=== PATIENT | female | born 1960 | race Caucasian/White ===

== ENCOUNTER 2019-10-22 00:19 | Inpatient (IN) | payer BC ==
[~2019-10-22] VITALS: Ht 172.7 cm; Wt 96.3 kg
[2019-10-22] MEDS ORDERED: ALBUTEROL SULF 2.5 MG/0.5ML(0.5%) NEB SOLN NEB ONE (00:45)
[2019-10-22] MEDS ORDERED: methylPREDNISolone SOD SUCC 125 MG/2 ML VL IV ONE (00:45)
[2019-10-22] MEDS ORDERED: IPRATROPIUM BROM 0.5 MG/2.5ML INH SOL NEB ONE (00:45)
[2019-10-22 01:09] LABS: Basophils # (auto) 0 10 ^3/uL (0-0.2); Basophils % (auto) 0.9 % (0.0-2.0); Eosinophils # (auto) 0.1 10 ^3/uL (0-0.8); Eosinophils % (auto) 2.2 % (0.0-7.0); Hematocrit 44.8 % (36.0-46.0); Hemoglobin 15.2 g/dL (12.2-16.2); Lymphocytes # (auto) 1.7 10 ^3/uL (0.4-5.4); Lymphocytes % (auto) 35.7 % (10.0-50.0); Mean Corpuscular Hemoglobin 31.7 pg (28.0-32.0); Mean Corpuscular Volume 93.2 fL (80.0-100.0); Monocytes # (auto) 0.4 10 ^3/uL (0-1.3); Monocytes % (auto) 9.3 % (0.0-12.0); Neutrophils # (auto) 2.4 10 ^3/uL (1.6-8.6); Neutrophils % (auto) 51.9 % (37.0-80.0); Nucleated Red Blood Cells % 0.4 %; Platelet Count (auto) 257 10^3/uL (140-450); Red Cell Distribution Width 13.7 % (11.8-14.3); White Blood Cell 4.7 10^3/uL (4.4-10.8)
[2019-10-22 01:26] LABS: Partial Thromboplastin Time 28.6 sec (23.64-32.05)
[2019-10-22 01:27] LABS: Albumin 3.4 g/dL (3.4-5.0); Anion Gap 6 (5-15); Calcium 8.7 mg/dL (8.5-10.1); Carbon Dioxide 25 mmol/L (21-32); Chloride 110 mmol/L (98-107); Glucose 103 mg/dL (74-106); Potassium 3.6 mmol/L (3.5-5.1); Sodium 141 mmol/L (136-145)
[2019-10-22 01:36] LABS: Alanine Aminotransferase 28 U/L (13-56); Alkaline Phosphatase 70 U/L (45-117); Aspartate Aminotransferase 14 U/L (15-37); BUN/Creatinine Ratio 22.4; Bilirubin, Total 0.4 mg/dL (0.2-1.0); Blood Urea Nitrogen 19 mg/dL (7-18); GFR African American 89 mL/min; GFR Non-African American 73 mL/min
[2019-10-22] MEDS ORDERED: DOCUSATE SOD 100 MG CAP PO PRN (03:00)
[2019-10-22] MEDS ORDERED: ONDANSETRON HCL 4 MG/2 ML VIAL IV PRN (03:00)
[2019-10-22] MEDS ORDERED: ACETAMINOPHEN 325 MG TAB PO PRN (03:00)
[2019-10-22] MEDS ORDERED: MORPHINE SULF INJ 2 MG/ML SYRINGE 1ML IV PRN (03:00)
[2019-10-22] MEDS ORDERED: ALBUTEROL SULF 2.5 MG/0.5ML(0.5%) NEB SOLN NEB PRN (03:00)
[2019-10-22] MEDS ORDERED: ACETAMINOPHEN 500 MG TAB PO PRN (03:00)
[2019-10-22] MEDS ORDERED: HYDROcodone-ACET 5/325MG TAB PO PRN (03:00)
[2019-10-22] MEDS ORDERED: IPRATROPIUM BROM 0.5 MG/2.5ML INH SOL NEB PRN (03:00)
[2019-10-22 03:24] VITALS: BP 154/73
[2019-10-22] MEDS: SODIUM CHLORIDE 0.9% 1,000 ML IV SCH ×2 (05:20→14:34)
[2019-10-22] MEDS ORDERED: ALBUTEROL SULF HFA 90MCG INH 200DOSE IN SCH (06:00)
--- NOTE | 2019-10-22 07:55 | NUR ---
Opening Shift Note Assumed care of patient, awake and alert. No S/S of distress/SOB or pain. Instructed on POC and to call for assist PRN, will continue to monitor for changes Q1hr and PRN.
--- NOTE | 2019-10-22 08:39 | NUR ---
MS admit from ER RODRI SHELL admitted to tele/MS after SBAR received. Patient oriented to MANUELA GONZALEZ RN primary RN, unit, room, bed, and unit policies regarding patient care and visiting hours. Patient weighed by bedscale and encouraged to call if they need something. All questions and concerns addressed, patient verbalized understanding.
[2019-10-22 08:40] LABS: Basophils # (auto) 0 10 ^3/uL (0-0.2); Basophils % (auto) 0.4 % (0.0-2.0); Eosinophils # (auto) 0 10 ^3/uL (0-0.8); Hematocrit 46.4 % (36.0-46.0); Hemoglobin 15.5 g/dL (12.2-16.2); Lymphocytes # (auto) 0.6 10 ^3/uL (0.4-5.4); Lymphocytes % (auto) 8.8 % (10.0-50.0); Mean Corpuscular Hgb Conc. 33.4 g/dL (32.0-36.0); Monocytes # (auto) 0.1 10 ^3/uL (0-1.3); Monocytes % (auto) 1.5 % (0.0-12.0); Neutrophils # (auto) 5.9 10 ^3/uL (1.6-8.6); Neutrophils % (auto) 89.3 % (37.0-80.0); Platelet Count (auto) 236 10^3/uL (140-450); Red Blood Cells 4.99 10^6/uL (4.0-5.20); Red Cell Distribution Width 13.4 % (11.8-14.3); White Blood Cell 6.6 10^3/uL (4.4-10.8)
[2019-10-22 09:08] LABS: Chloride 112 mmol/L (98-107); Potassium 3.4 mmol/L (3.5-5.1)
[2019-10-22 09:19] VITALS: BP 132/73
[2019-10-22 09:19] LABS: BUN/Creatinine Ratio 19.5; Blood Urea Nitrogen 15 mg/dL (7-18); Calcium 8.7 mg/dL (8.5-10.1); Carbon Dioxide 24 mmol/L (21-32); Cholesterol 237 mg/dL (< 200); GFR African American 99 mL/min; GFR Non-African American 82 mL/min; Glucose 148 mg/dL (74-106); HDL Cholesterol 50 mg/dL (40-59); LDL Cholesterol 165 mg/dL (< 100); Magnesium 2.5 mg/dL (1.6-2.6); Triglycerides 105 mg/dL (< 150)
[2019-10-22] MEDS: DOXYCYCLINE 100 MG TAB/CAP PO SCH ×2 (09:57→10:00)
[2019-10-22] MEDS ORDERED: CHOLECALCIFEROL (VITD3) 1,000IU=25mCg TAB PO SCH (10:00)
[2019-10-22] MEDS ORDERED: ZINC SULFATE 220mg CAP or TAB PO SCH (10:00)
[2019-10-22] MEDS ORDERED: ENOXAPARIN SOD 40 MG/0.4 ML SYRINGE SC SCH (10:00)
[2019-10-22] MEDS ORDERED: methylPREDNISolone SOD SUCC 125 MG/2 ML VL IV SCH (10:00)
[2019-10-22] MEDS ORDERED: ASCORBIC ACID 1,000 MG TAB PO SCH (10:00)
[2019-10-22] MEDS ORDERED: COEN100C37 PO (10:14)
[2019-10-22] MEDS ORDERED: [UNRECOGNIZED DRUG - CODE] OR (10:14)
[2019-10-22] MEDS ORDERED: MULT-1018 PO (10:14)
[2019-10-22] MEDS ORDERED: LUTE6TAB2 PO (10:14)
[2019-10-22] MEDS ORDERED: BILB80CA PO (10:14)
[2019-10-22] MEDS ORDERED: EVEN500C19 PO (10:15)
[2019-10-22] MEDS ORDERED: POTASSIUM EFFERVESENT TAB 25 MEQ PO ONE (11:30)
[2019-10-22 12:08] LABS: Anion Gap 6 (5-15); Sodium 142 mmol/L (136-145)
[2019-10-22 13:00] VITALS: BP 133/76
--- NOTE | 2019-10-22 14:04 | NUR ---
PATIENT REQUESTING IV REMOVAL PATIENT EDUCATED ON THE NEED FOR IV. PATIENT VERBALIZED UNDERSTANDING AND IS STILL REQUESTING TO HAVE IV REMOVED.
--- NOTE | 2019-10-22 14:05 | NUR ---
IV removal IV DC'd with clean sterile technique, catheter fully intact. Pressure dressing applied to site. Patient tolerated well. NOTE:
[2019-10-22 16:47] VITALS: BP 131/77
[2019-10-22] MEDS ORDERED: ALBUAER3 IN (16:48)
--- NOTE | 2019-10-22 17:05 | NUR ---
Discharge instructions given as ordered. Encourage to follow up with PMD as instructed. All questions and concerns addressed. Patient verbalized understanding. Medication reconciliation form completed and copy given to patient.Telemetry unit returned to ICU. Patient taken to vehicle via wheelchair with all personal belongings, accompanied by staff and family member. No distress noted at time of departure.
== END 2019-10-22 17:02 | disposition home or self-care (01) | DRG 203 ==
LOC: ER 00:19 → EEVIPCON 00:19 → OVERFLOW 00:20 → EAST 08:40
PROVIDERS: ADMIT Hospitalist; ATTEND Internal Medicine
DX: J45.909 Unspecified asthma, uncomplicated (principal); Z20.828 Contact with and (suspected) exposure to other viral communicable diseases
CPT/HCPCS: 36415; 71045; 80048; 80053; 80061; 83735; 83880; 84484; 85025; 85610; 85730; 87070; 87804; 87880; 93005; 94640; 96374; 96376; G0378

== ENCOUNTER 2020-11-14 18:55 | Emergency (ER) | payer BC ==
[~2020-11-14] VITALS: Ht 172.7 cm; Wt 89.8 kg
[~2020-11-14 18:55] MED LIST: ALBUAER3 IN; BILB80CA PO; COEN100C37 PO; EVEN500C19 PO; LUTE6TAB2 PO; MULT-1018 PO; [UNRECOGNIZED DRUG - CODE] OR
[2020-11-14 20:10] VITALS: BP 118/68
== END 2020-11-14 20:50 | disposition home or self-care (01) ==
LOC: ER 18:55
DX: M79.605 Pain in left leg (principal); Z98.51 Tubal ligation status
CPT/HCPCS: 93971

== ENCOUNTER 2022-10-24 08:53 | Emergency (ER) | payer BC ==
[~2022-10-24] VITALS: Ht 172.7 cm; Wt 92.0 kg
[2022-10-24 11:01] VITALS: BP 157/74
== END 2022-10-24 11:12 | disposition home or self-care (01) ==
LOC: ER 08:53
DX: M25.562 Pain in left knee (principal); Z79.899 Other long term (current) drug therapy; Z98.890 Other specified postprocedural states
CPT/HCPCS: 73562

== ENCOUNTER 2024-12-19 21:36 | Emergency (ER) | payer BC ==
[~2024-12-19] VITALS: Ht 172.7 cm; Wt 91.4 kg
[2024-12-19 21:38] VITALS: BP 149/57; PULSE 68; RESP 18; TEMP 98.6; O2SAT 97
[2024-12-19] MEDS ORDERED: PRED20TA2 PO (21:54)
[2024-12-19] MEDS ORDERED: CEPH500C PO (21:54)
--- NOTE | 2024-12-19 21:55 | ED.PDOC ---
History of Present Illness(SKN HPI Comments 64-year-old female presents to ER with complaints of insect bite x1 day. Patient presents to ER for evaluation of insect bites to right upper arm and left leg that she states occurred yesterday. She reports swelling/redness/increased warmth and 5/10 itching-burning pain localized to site of insect bites and is unsure what type of insect bit her. States that she followed up with her PCP today and was prescribed a topical steroid cream that she has been using without any relief. Denies fever, body aches, chills, skin drainage, nausea/vomiting, headache or any further symptoms/complaints Chief Complaint: Insect Bite Time Seen by MD: 21:47 Primary Care Provider: NERI History of Present Illness: Nurses Notes, Medications, Allergies Allergies: Coded Allergies: NO KNOWN ALLERGIES (Unverified , 03/11/15) Home Meds Active Scripts Prednisone (Prednisone) 20 Mg Tab, 20 MG PO BID for 5 Days, #10 TAB 0 Refills Prov:SARMAD DING 12/19/24 Cephalexin Monohydrate (Cephalexin) 500 Mg Cap, 1 CAP PO BID for 7 Days, #14 CAP 0 Refills Prov:SARMAD DING 12/19/24 Albuterol Sulfate (VENTOLIN MDI) 90 Mcg Ih, 90 MCG IN Q6HPRN PRN, #1 INH Prov:NAPOLEON GARCIA MD 10/22/19 Reported Medications Evening Wheeling Oil (EQL EVENING PRIMROSE OIL) Unknown Strength Cap, PO DAILY, CAP 10/22/19 Multiple Vitamin (Multivitamins) Tab, 1 TAB PO DAILY, #90 TAB 3 Refills 10/22/19 Crataegus Oxyacantha (Bradley (HAWTHORN BERRIES) Unknown Strength Cap, OR CATRACHITO LY, CAP 10/22/19 Bilberry (Myrtillus) (Bilberry) Unknown Strength Cap, PO DAILY, CAP 10/22/19 Vegetable Enzyme (LUTEIN) 6 Mg Tab, 6 MG PO DAILY, TAB 10/22/19 Coenzyme Q10 (Ubidecarenone) (CO Q 10) Unknown Strength Cap, PO DAILY, CAP 10/22/19 Information Source: Patient Mode of Arrival: Ambulatory Past Medical History PAST MEDICAL HISTORY: Denies Surgical History: BTL, 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 Family History Family History: Family hx of heart cherelle Social History Smoker: Non-Smoker Alcohol: Occasionally Drugs: Denies Drug Use Lives In: Home Constitutional: denies: chills, diaphoresis, fatigue, fever, malaise, sweats, weakness, others EENTM: denies: blurred vision, double vision, ear bleeding, ear discharge, ear drainage, ear pain, ear ringing, eye pain, eye redness, hearing loss, mouth pain, mouth swelling, nasal discharge, nose bleeding, nose congestion, nose pain, photophobia, tearing, throat pain, throat swelling, voice changes, others Respiratory: denies: cough, hemoptysis, orthopnea, SOB at rest, shortness of breath, SOB with excertion, stridor, wheezing, others Cardiovascular: denies: chest pain, dizzy spells, diaphoresis, Dyspnea on exertion, edema, irregular heart beat, left arm pain, lightheadedness, palpitations, PND, syncope, others Gastrointestinal: denies: abdomen distended, abdominal pain, blood streaked bowels, constipated, diarrhea, dysphagia, difficulty swallowing, hematemesis, melena, nausea, poor appetite, poor fluid intake, rectal bleeding, rectal pain, vomiting, others Genitourinary: denies: abnormal vagina bleeding, burning, dyspareunia, dysuria, flank pain, frequency, hematuria, incontinence, pain, , vagina discharge, urgency, others Neurological: denies: dizziness, fainting, headache, left sided numbness, left sided weakness, numbness, paresthesia, pre-existing deficit, right sided numbness, right sided weakness, seizure, speech problems, tingling, tremors, weakness, others Musculoskeletal: denies: back pain, gout, joint pain, joint swelling, muscle pain, muscle stiffness, neck pain, others Integumetry: reports: others (As stated in HPI) Allergic/Immunocompromised: reports: others (As stated in HPI) Hematologic/Lymphatic: denies: anemia, blood clots, easy bleeding, easy bruising, swollen glands, others Endocrine: denies: excessive hunger, excessive sweating, excessive thirst, excessive urination, flushing, intolerance to cold, intolerance to heat, unexplained weight gain, unexplained weight loss, others Psychiatric: denies: anxiety, bipolar disorder, depression, hopeless, panic disorder, schizophrenia, sleepless, suicidal, others Physical Exam General Appearance: No Apparent Distress HEENT: PERRL/EOMI Neck: Full Range of Motion, Non-Tender, Normal Respiratory: Chest Non-Tender, Lungs Clear, No Accessory Muscle Use, No Respiratory Distress, Normal Breath Sounds Cardiovascular: No Murmur, No Gallop, Regular Rate/Rhythm Breast Exam: Deferred Gastrointestinal: NOT DONE Genitalia: Deferred Pelvic: Deferred Rectal: Deferred Extremities: Normal capillary refill, Normal range of motion Neurologic: Alert, insurance sales manager II-XII nml as Tested, No Motor Deficits, Normal Affect, Normal Mood, No Sensory Deficits Cerebellar Function: Normal Reflexes: Normal Skin: Dry, Warm, Other (Insect bites noted to left thigh and right upper arm with moderate surrounding erythema/increased warmth/mild swelling. No fluctuance/drainage/red streaking/FB noted) Peripheral Pulses: 2+ Radial (R), 2+ Radial (L), 2+ Brachial (R), 2+ Brachial (L) Lymphatic: No Adenopathy Was a procedure done? Was a procedure done?: No Sedation Sedation?: No Differential Diagnosis (INTG) Differential Diagnosis: Abrasion Differential Diagnosis: Abscess Differential Diagnosis: Retained Foreign Body X-Ray, Labs, Meds, VS Vital Signs Date Time Temp Pulse Resp B/P (MAP) Pulse Ox O2 Delivery O2 Flow Rate FiO2 12/19/24 21:38 98.6 68 18 149/57 97 98.6 Rocephin 1 g IM ordered Solu-Medrol 125 mg IM ordered Advised to follow up with PCP in 1-2 days Patient verbalized understanding and agreeable with current plan of care Advised to return to ER immediately if symptoms worsen Time of 1ST Reevaluation: 21:47 Reevaluation 1ST: N/A Patient Education/Counseling: Diagnosis, Treatment, Prognosis, Need For Follow Up Family Education/Counseling: No Family Present SEPSIS Sepsis Screen Date sepsis recognized/suspect: Dec 19, 2024 Time Sepsis recognized/suspect: 2141 Recent Procedure: No On Antibiotic Therapy: No Respiratory Rate >20: No Heart Rate >90: No Temp<36 C (96.8 F) or >38.3 C: No SBP <90 or MAP <65 mmHG: No New Acute Mental Status Change: No Is the patient on CPAP, BIPAP,: No Physician Orders Ceftriaxone Sodium (Rocephin) (12/19/24 22:00) Methylprednisolone Sod Succ (Solu Medrol (12/19/24 22:00) Vital Signs Date Time Temp Pulse Resp B/P (MAP) Pulse Ox O2 Delivery O2 Flow Rate FiO2 12/19/24 21:38 98.6 68 18 149/57 97 98.6 Departure 1 Departure Time of Disposition: 21:52 Impression: Primary Impression: Cellulitis of right upper extremity Additional Impressions: Insect bite Qualified Codes: W57.XXXA - Bitten or stung by nonvenomous insect and other nonvenomous arthropods, initial encounter Cellulitis of left lower extremity Disposition: HOME / SELF CARE / HOMELESS Condition: Stable e-Prescriptions Prednisone (Prednisone) 20 Mg Tab 20 MG PO BID for 5 Days, #10 TAB 0 Refills Prov: SARMAD DING 12/19/24 Cephalexin Monohydrate (Cephalexin) 500 Mg Cap 1 CAP PO BID for 7 Days, #14 CAP 0 Refills Prov: SARMAD DING 12/19/24 Discharged With: Self Critical Care Note Critical Care Time?: No Stability Stability form required: No Heart Score Heart Score: Heart Score Response (Comments) Value History N/A 0 EKG N/A 0 Age N/A 0 Risk Factors N/A 0 Troponin N/A 0 Total 0 SARMAD DING Dec 19, 2024 21:55
[2024-12-19] MEDS: cefTRIAXone SOD 1,000 MG VL IM ONE (22:12)
[2024-12-19] MEDS: methylPREDNISolone SOD SUCC 125 MG/2 ML VL IM ONE (22:13)
== END 2024-12-19 22:19 | disposition home or self-care (01) ==
LOC: ER 21:36 → EEVIPCON 21:36 → ER 22:19
DX: S40.861A Insect bite (nonvenomous) of right upper arm, initial encounter (principal); L03.113 Cellulitis of right upper limb; L03.116 Cellulitis of left lower limb; Z98.51 Tubal ligation status; W57.XXXA Bitten or stung by nonvenomous insect and other nonvenomous arthropods, initial encounter; Y93.89 Activity, other specified; Y92.89 Other specified places as the place of occurrence of the external cause; Y99.8 Other external cause status
CPT/HCPCS: 96372; 99284; J0696; J2919